=== PATIENT | male | born 1985 | race Caucasian/White ===

== ENCOUNTER 2019-01-11 19:11 | Emergency (ER) | payer BC ==
[2019-01-11 19:41] VITALS: BP 158/97
[2019-01-11] MEDS ORDERED: Cephalexin CAP* 500 MG PO ONE (19:59)
[2019-01-11] MEDS ORDERED: HYDROcodone/ACETAMIN 5-325 MG* 1 TAB PO ONE (20:04)
--- NOTE | 2019-01-11 20:11 | UC ---
Hand/Wrist HPI - HPI Summary HPI Summary: dropped a rock on left middle finger yesterday---pain middle phalange, Superficial wound - History Of Current Complaint Chief Complaint: UCLaceration Stated Complaint: FINGER PAIN Time Seen by Provider: 01/11/19 19:38 Hx Obtained From: Patient Mechanism Of Injury: crush injury Onset/Duration: Sudden Onset, Lasting Days - 1 Pain Intensity: 8 Pain Scale Used: 0-10 Numeric Character Of Pain: Aching, Throbbing Alleviating Factor(s): Rest Associated Signs And Symptoms: Positive: Swelling Related History: Dominant Hand Right - Allergies/Home Medications Allergies/Adverse Reactions: Allergies Allergy/AdvReac Type Severity Reaction Status Date / Time No Known Allergies Allergy Verified 01/11/19 19:41 Home Medications: Home Medications Ibuprofen TAB* [Motrin TAB* 400 MG] 400 mg PO Q6H PRN 01/11/19 [History Confirmed 01/11/19] Vitamin B Complex CAP* [B Complex CAP*] 1 cap PO DAILY 01/11/19 [History Confirmed 01/11/19] PMH/Surg Hx/FS Hx/Imm Hx Previously Healthy: Yes - Surgical History Surgical History: None - Family History Known Family History: Positive: None - Social History Occupation: Employed Full-time Lives: With Family Alcohol Use: Weekly Substance Use Type: None Smoking Status (MU): Never Smoked Tobacco - Immunization History Most Recent Tetanus Shot: 10/30 Review of Systems All Other Systems Reviewed And Are Negative: Yes Constitutional: Positive: Negative Skin: Positive: Other - open superficial wound palmar aspect of left 3rd finger middle phalange Eyes: Positive: Negative ENT: Positive: Negative Respiratory: Positive: Negative Cardiovascular: Positive: Negative Gastrointestinal: Positive: Negative Genitourinary: Positive: Negative Motor: Positive: Negative Neurovascular: Positive: Negative Musculoskeletal: Positive: Arthralgia, Edema - left third finger Neurological: Positive: Negative Psychological: Positive: Negative Is Patient Immunocompromised?: No Physical Exam Triage Information Reviewed: Yes Appearance: Well-Appearing, No Pain Distress, Well-Nourished Vital Signs: Initial Vital Signs Temp 98.4 F 01/11/19 19:37 Pulse 70 01/11/19 19:37 Resp 16 01/11/19 19:37 BP 158/97 01/11/19 19:37 Pulse Ox 100 01/11/19 19:37 Vital Signs Reviewed: Yes Eye Exam: Normal Eyes: Positive: Conjunctiva Clear ENT Exam: Normal ENT: Positive: Normal ENT inspection, Hearing grossly normal. Negative: Trismus , Muffled voice, Hoarse voice Dental Exam: Normal Neck exam: Normal Neck: Positive: Supple, Nontender Respiratory Exam: Normal Respiratory: Positive: Chest non-tender, No respiratory distress, No accessory muscle use Cardiovascular Exam: Normal Cardiovascular: Positive: RRR, Pulses Normal, Brisk Capillary Refill Musculoskeletal Exam: Other Musculoskeletal: Positive: ROM Limited @, Edema @ - left 3rd finger Neurological Exam: Normal Neurological: Positive: Alert, Muscle Tone Normal Psychological Exam: Normal Skin: Positive: Other - skin avulsion left mid interiano surface of 3rd finger Diagnostics - Radiology No standard instances Radiology Interpretation Completed By: ED Physician - ? avulsion fx--- Hand/Wrist Course/Dx - Course Course Of Treatment: splint, Keflex, tetanus utd, dressing follow with Dr. Barrera 1-2 days--- hydrocodone tonight, ibuprofen, tylenol for pain - Differential Dx/Diagnosis Provider Diagnosis: Crushing injury of left middle finger, initial encounter Discharge ED - Sign-Out/Discharge Documenting (check all that apply): Patient Departure All imaging exams completed and their final reports reviewed: No - Discharge Plan Condition: Stable Disposition: HOME Prescriptions: Cephalexin CAP* [Keflex CAP*] 500 mg PO QID #20 cap Patient Education Materials: Ibuprofen (By mouth), Acute Wound Care (ED), Suspected Fracture (ED), Crush Injury (ED) Referrals: Mackenzie Barrera MD [Medical Doctor] - 2 Days - Billing Disposition and Condition Condition: STABLE Disposition: Home
== END 2019-01-11 20:21 | disposition home or self-care (01) ==
LOC: UCEAST 19:11
DX: S67.193A Crushing injury of left middle finger, initial encounter (principal); W22.8XXA Striking against or struck by other objects, initial encounter; Y92.9 Unspecified place or not applicable
CPT/HCPCS: 73140; 99203; A9270-GY; G0463